=== PATIENT | female | born 1980 | race Caucasian/White ===

== ENCOUNTER → 2017-09-22 | Outpatient (CLI) | payer OTHER ==
[~2017-09-22] MED LIST: BUPR150CR PO; PROT40TA PO
== END ==
LOC: HPND 13:37
PROVIDERS: ATTEND Family Medicine
DX: O09.521 Supervision of elderly multigravida, first trimester (principal)
CPT/HCPCS: 76801

== ENCOUNTER → 2017-10-05 | Outpatient (CLI) | payer OTHER | LOC: HPND 10:52 | PROVIDERS: ATTEND Family Medicine | DX: O09.521 Supervision of elderly multigravida, first trimester (principal); O09.291 Supervision of pregnancy with other poor reproductive or obstetric history, first trimester | CPT/HCPCS: 36415; 76813 ==

== ENCOUNTER → 2017-11-16 | Outpatient (CLI) | payer OTHER | LOC: HPND 10:42 | PROVIDERS: ATTEND Family Medicine | DX: O09.522 Supervision of elderly multigravida, second trimester (principal); O09.292 Supervision of pregnancy with other poor reproductive or obstetric history, second trimester; O99.282 Endocrine, nutritional and metabolic diseases complicating pregnancy, second trimester; E03.9 Hypothyroidism, unspecified; O44.22 Partial placenta previa NOS or without hemorrhage, second trimester; O35.1XX0 Maternal care for (suspected) chromosomal abnormality in fetus, not applicable or unspecified | CPT/HCPCS: 76811; 76817 ==

== ENCOUNTER → 2017-12-14 | Outpatient (CLI) | payer OTHER | LOC: HPND 11:17 | PROVIDERS: ATTEND Family Medicine | DX: O09.522 Supervision of elderly multigravida, second trimester (principal); O35.8XX0 Maternal care for other (suspected) fetal abnormality and damage, not applicable or unspecified; O44.32 Partial placenta previa with hemorrhage, second trimester; O35.1XX0 Maternal care for (suspected) chromosomal abnormality in fetus, not applicable or unspecified; O09.892 Supervision of other high risk pregnancies, second trimester | CPT/HCPCS: 76816 ==

== ENCOUNTER 2018-03-10 10:16 | Inpatient (IN) ==
--- NOTE | 2018-03-10 11:17 | ED ---
History of Present Illness Primary Care Physician: No Primary Care Physician Chief Complaint: Loss of fluid History of Present Illness: Patient is a 37-year-old G 5 p 2 at 35/1 who presents today for loss of fluid. She reports that early this morning at approximately 6 AM showed a large gush of fluid. Clear at the time. She reports that the fluid is mildly pink currently. Denies any vaginal discharge prior to the loss of fluid this morning , malodorous smell, no bloody discharge. She also endorses contractions once every 10 minutes. They are increasing in intensity, frequency. She states she has had normal movement. Denies nausea, vomiting, fever, chills, shortness of breath, headache, lightheadedness, dizziness, dysuria, hematuria, frequency, change in urine color/smell, change in bowel habits. No other complaints today. History OB: 022 at 35/1. First delivery for preeclampsia, second delivery Medical: Hypothyroid Surgical: 1, breast augmentation 2, cosmetic surgery for scar Family Mother: Unknown Father: Mauro brothers Social EtOH: Denies Tobacco: Denies Drugs: Denies Review of Systems Constitutional: Denies chills, Denies fatigue, Denies fever(s) Eyes: Denies blurry vision, Denies bulging eyes, Denies discharge Ears, Nose, Mouth, and Throat: Denies abnormal hearing, Denies ear discharge Cardiovascular: Denies chest pain, Denies shortness of breath Respiratory: Denies chest congestion, Denies cough, Denies wheezing Gastrointestinal: Denies black, tarry stools, Denies change in bowel habits, Denies change in stools, Denies loose stools, Denies nausea, Denies vomiting Genitourinary: Denies abnormal vaginal bleeding, Denies blood in urine, Denies vaginal discharge, Denies vaginal odor Musculoskeletal: Denies back pain, Denies numbness, Denies tingling Skin/Breast: Denies skin ulcer, Denies sores Neurologic: Denies abnormal movements, Denies headache(s), Denies loss of vision , Denies numbness, Denies tingling PMFSH - History History Provided By: Patient - Medical History Medical History: Medical History (Last Updated 03/01/18 @ 21:56 by Tawnya Rose MD, R1) Hypothyroid (Acute) - Surgical History Surgical History: Surgical History (Last Updated 02/02/18 @ 12:34 by Lisa Chavarria MD, R1) History of cosmetic surgery Previous section - Tobacco History Second Hand Smoke Exposure: No Smoking Status: Never smoker - Alcohol History How Often Do You Have a Drink Containing Alcohol: Never - Substance Use History Substance History: No History of Abuse Medications and Allergies Allergies Allergy/AdvReac Type Severity Reaction Status Date / Time Sulfa (Sulfonamide Allergy Severe spiked Verified 03/01/18 21:44 Antibiotics) fever Home Medications Medication Instructions Recorded Confirmed Type Aspirin Low Dose 81 mg PO DAILY 02/02/18 03/10/18 History + DHA 1 tab/day PO DAILY 02/02/18 03/10/18 History levothyroxine 100 mcg PO DAILY 02/02/18 03/10/18 History Active Medications: Active Medications Sodium Chloride (Ns Flush) 2 ml IV.FLUSH BID MAYRA Sodium Chloride (Ns Flush) 2 ml IV.FLUSH PRN PRN PRN Reason: FLUSH AFTER USING IV ACCESS Exam Vital signs: Vital Signs 03/10/18 10:36 Temperature 98.6 F Pulse Rate 86 Respiratory Rate 20 Blood Pressure 124/78 Narrative: GENERAL: Well-nourished, well-developed patient. SKIN: Warm and dry. HEAD: Normocephalic and atraumatic. EYES: No scleral icterus. No injection or drainage. ENT: No nasal drainage noted. Mucous membranes pink. Airway patent. NECK: Supple, trachea midline. No JVD. CARDIOVASCULAR: Regular rate and rhythm without murmurs, gallops, or rubs. RESPIRATORY: Breath sounds equal bilaterally. No accessory muscle use. ABDOMEN/GI: Abdomen soft, non-tender, bowel sounds present, no rebound, no guarding GENITOURINARY: Fingertip, posterior, thick Membranes: Ruptured Uterine Contractions: Regular FHT's: Category: 1 Baseline: 150 Reactive: Yes Variability: Moderate Decels: None EXTREMITIES: No cyanosis or edema. BACK: Nontender without obvious deformity. No CVA tenderness. NEUROLOGICAL: Awake and alert. Motor and sensory grossly within normal limits. Five out of 5 muscle strength in all muscle groups. Normal speech. Results - Labs CBC & Chem 7: 03/10/18 11:09 Assessment and Plan - Diagnosis (1) premature rupture of membranes Code(s): O42.919 - premature rupture of membranes, unspecified as to length of time between rupture and onset of labor, unspecified trimester Status: Acute (2) 35 weeks gestation of Code(s): Z3A.35 - 35 weeks gestation of Status: Acute - Plan 37-year-old at 35/1 who presents with PPROM. Amnisure positive. Increasingly frequent and strong contractions. -Admit to labor and delivery, observe for spontaneous labor -we will consider Pitocin augmentation if no significant change -FHT category 1, reassuring -Expectant management - Attending Attestation Patient seen, examined, and discussed with Dr Bhatia. I agree with assessment and management as documented and discussed with me. Pt comes in after ROM at home at 0600, clear. She is 35 weeks gestation by 1st trimester US. Will monitor for onset of labor - pt with contractions. Betamethasone. GBS unknown - PCR collected. PCN ordered. Discharge Plan - Physicians Team Primary Care Provider: Primary Care Physici,No Attending Provider: Macy Duron
[2018-03-10 11:26] LABS: Hemoglobin 9.6 gm/dL (11.6-15.3); Mean Corpuscular HGB Conc 33.2 % (32.0-36.0); Mean Corpuscular Hemoglobin 27.4 pg (27.0-34.0); Mean Corpuscular Volume 82.6 fL (80.0-100.0); Mean Platelet Volume 7.8 fL (7.0-11.0); Platelet Count 415 th/mm3 (150-450); Red Blood Count 3.51 mil/mm3 (4.00-5.30); Red Cell Distribution Width 13.6 % (11.6-17.2); White Blood Count 13.2 th/mm3 (4.0-11.0)
[2018-03-10] MEDS ORDERED: Acetaminophen 325 MG Tablet PO PRN ×2 (11:29→18:59)
[2018-03-10] MEDS ORDERED: Betamethasone Sod Phos/Acetate Inj 30 MG/5 ML Vial IM SCH (11:30)
[2018-03-10 11:54] LABS: Bilirubin,Urine Negative (Negative); Clarity,Urine Hazy (Clear); Color,Urine Yellow (Yellw/Straw); Glucose,Urine (UA) Negative (Negative); Leukocyte Esterase,Urine Negative (Negative); Mucus,Urine Few /lpf (Occasional); Nitrite,Urine Negative (Negative); Specific Gravity,Urine 1.005 (1.002-1.035); Squamous Epithelial Cell,Urine 9 /hpf (0-5)
[2018-03-10] MEDS ORDERED: Naloxone Inj 0.4 MG/ML Vial IV.PUSH PRN ×2 (11:55→18:59)
[2018-03-10] MEDS ORDERED: Oxytocin 30 Units/500ml Premix 30 UNITS/500 ML BAG IV.SIG ONE (11:55)
[2018-03-10] MEDS ORDERED: fentaNYL Citrate Inj 100 MCG/2 ML Ampul IV.PUSH PRN ×2 (11:55)
[2018-03-10] MEDS ORDERED: Sod Chloride 0.9% Inj 1,000 ML IV.CONT PRN (11:55)
[2018-03-10] MEDS ORDERED: Sodium Chlor 0.9% Inj 500 ML IV.SIG PRN (11:55)
[2018-03-10] MEDS ORDERED: Penicillin G Potassium Inj 5,000,000 UNIT in Sodium Chloride 0.9% Inj 100 ML IV.SIG ONE (11:55)
[2018-03-10] MEDS ORDERED: Citric Acid/Sodium Citrate Liq 30 ML UDC PO SCH (12:00)
--- NOTE | 2018-03-10 12:17 | P.OBGPN ---
History of Present Illness Primary Care Physician: No Primary Care Physician Chief Complaint: Loss of fluid History of Present Illness: Patient is a 37-year-old G 5 p 2 at 35/1 who presents today for loss of fluid. She reports that early this morning at approximately 6 AM showed a large gush of fluid. Clear at the time. She reports that the fluid is mildly pink currently. Denies any vaginal discharge prior to the loss of fluid this morning , malodorous smell, no bloody discharge. She also endorses contractions once every 10 minutes. They are increasing in intensity, frequency. She states she has had normal movement. Denies nausea, vomiting, fever, chills, shortness of breath, headache, lightheadedness, dizziness, dysuria, hematuria, frequency, change in urine color/smell, change in bowel habits. No other complaints today. History OB: 022 at 35/1. First delivery for preeclampsia, second delivery Medical: Hypothyroid Surgical: 1, breast augmentation 2, cosmetic surgery for scar Family Mother: Unknown Father: Mauro brothers Social EtOH: Denies Tobacco: Denies Drugs: Denies Review of Systems Constitutional: Denies chills, Denies fatigue, Denies fever(s) Eyes: Denies blurry vision, Denies bulging eyes, Denies discharge Ears, Nose, Mouth, and Throat: Denies abnormal hearing, Denies ear discharge Cardiovascular: Denies chest pain, Denies shortness of breath Respiratory: Denies chest congestion, Denies cough, Denies wheezing Gastrointestinal: Denies black, tarry stools, Denies change in bowel habits, Denies change in stools, Denies loose stools, Denies nausea, Denies vomiting Genitourinary: Denies abnormal vaginal bleeding, Denies blood in urine, Denies vaginal discharge, Denies vaginal odor Musculoskeletal: Denies back pain, Denies numbness, Denies tingling Skin/Breast: Denies skin ulcer, Denies sores Neurologic: Denies abnormal movements, Denies headache(s), Denies loss of vision , Denies numbness, Denies tingling PMFSH - History History Provided By: Patient - Medical History Medical History: Medical History (Last Updated 03/01/18 @ 21:56 by Tawnya Rose MD, R1) Hypothyroid (Acute) - Surgical History Surgical History: Surgical History (Last Updated 02/02/18 @ 12:34 by Lisa Chavarria MD, R1) History of cosmetic surgery Previous section - Tobacco History Second Hand Smoke Exposure: No Smoking Status: Never smoker - Alcohol History How Often Do You Have a Drink Containing Alcohol: Never - Substance Use History Substance History: No History of Abuse Medications and Allergies Active Medications: Active Medications Sodium Chloride (Ns Flush) 2 ml IV.FLUSH BID MAYRA Sodium Chloride (Ns Flush) 2 ml IV.FLUSH PRN PRN PRN Reason: FLUSH AFTER USING IV ACCESS Allergies Allergy/AdvReac Type Severity Reaction Status Date / Time Sulfa (Sulfonamide Allergy Severe spiked Verified 03/01/18 21:44 Antibiotics) fever Home Medications Medication Instructions Recorded Confirmed Type Aspirin Low Dose 81 mg PO DAILY 02/02/18 03/01/18 History + DHA 1 tab/day PO DAILY 02/02/18 03/01/18 History levothyroxine 100 mcg PO DAILY 02/02/18 03/01/18 History Exam Vital signs: Vital Signs 03/10/18 10:36 Temperature 98.6 F Pulse Rate 86 Respiratory Rate 20 Blood Pressure 124/78 Narrative: GENERAL: Well-nourished, well-developed patient. SKIN: Warm and dry. HEAD: Normocephalic and atraumatic. EYES: No scleral icterus. No injection or drainage. ENT: No nasal drainage noted. Mucous membranes pink. Airway patent. NECK: Supple, trachea midline. No JVD. CARDIOVASCULAR: Regular rate and rhythm without murmurs, gallops, or rubs. RESPIRATORY: Breath sounds equal bilaterally. No accessory muscle use. ABDOMEN/GI: Abdomen soft, non-tender, bowel sounds present, no rebound, no guarding GENITOURINARY: Fingertip, posterior, thick Membranes: Ruptured Uterine Contractions: Regular FHT's: Category: 1 Baseline: 150 Reactive: Yes Variability: Moderate Decels: None EXTREMITIES: No cyanosis or edema. BACK: Nontender without obvious deformity. No CVA tenderness. NEUROLOGICAL: Awake and alert. Motor and sensory grossly within normal limits. Five out of 5 muscle strength in all muscle groups. Normal speech. Results - Labs CBC & Chem 7: 03/10/18 11:09 Assessment and Plan - Diagnosis (1) premature rupture of membranes Code(s): O42.919 - premature rupture of membranes, unspecified as to length of time between rupture and onset of labor, unspecified trimester Status: Acute (2) 35 weeks gestation of Code(s): Z3A.35 - 35 weeks gestation of Status: Acute - Plan 37-year-old at 35/1 who presents with PPROM. Amnisure positive. Increasingly frequent and strong contractions. -Admit to labor and delivery, observe for spontaneous labor -we will consider Pitocin augmentation if no significant change -FHT category 1, reassuring -Expectant management Attending note Patient seen, examined, and discussed with Dr Bhatia. I agree with assessment and management as documented and discussed with me. SOWMYA FREIRE MD
[2018-03-10] MEDS ORDERED: fentaNYL 2MCG-Bupiv 0.125% Epi 150 ML EPIDURAL ONE (14:12)
[2018-03-10] MEDS ORDERED: Lidocaine PF 1% Inj 30 ML Vial ONE (14:32)
[2018-03-10 14:42] LABS: Amphetamine Urine With Conf Neg (Neg); Benzodiazepine Urine With Conf Neg (Neg)
[2018-03-10] MEDS ORDERED: fentaNYL Citrate Inj 100 MCG/2 ML Ampul EPIDURAL ONE (15:00)
[2018-03-10] MEDS ORDERED: fentaNYL 2MCG-Bupiv 0.125% Epi 150 ML EPIDURAL PRN (15:00)
[2018-03-10] MEDS ORDERED: Penicillin G Potassium Inj 2,500,000 UNIT in Sodium Chlor 0.9% Inj 100 ML IV.SIG SCH (15:55)
[2018-03-10] MEDS ORDERED: Measles/Mumps/Rubella Vaccine Inj 0.5 ML Vial SQ ONE (16:00)
[2018-03-10] MEDS ORDERED: Diphtheria/Tetanus/Pertussis Vaccine Inj 0.5 ML Syringe IM ONE (16:00)
[2018-03-10 18:56] LABS: Cord Arterial Blood HCO3 21.4
[2018-03-10] MEDS ORDERED: Oxytocin 30 Units/500ml Premix 30 UNITS/500 ML BAG IV.CONT PRN (18:59)
[2018-03-10] MEDS ORDERED: Zolpidem Tartrate 5 MG Tablet PO PRN (18:59)
[2018-03-10] MEDS ORDERED: Bisacodyl 10 MG Supp RECTAL PRN (18:59)
[2018-03-10] MEDS ORDERED: Witch Hazel 50%/Glyderin 12.5% 40 Pad Jar RECTAL PRN (18:59)
[2018-03-10] MEDS ORDERED: Benzocaine 20% Top Spray 60 ML Can TOPICAL PRN (18:59)
--- NOTE | 2018-03-10 19:08 | P.OBDELI ---
Weeks Gestation: 35 Patient Started Active Labor: Yes Active Labor Start Date: 03/10/18 Medical Induction of Labor: No Artificial Rupture of Membrane: No Anesthesia: Epidural Episiotomy: none Vaginal Delivery: Normal Presentation: Occiput anterior Nuchal Cord: None Delayed Cord Clamping (45 sec): Yes Placenta: Spontaneous delivery, Cord pH (7.24) Laceration: 2 deg Repair: Vicryl running Estimated blood loss (mL): 250 Infant: Female (2820g; APGARS 8/8) Additional Information: Ms. Farnsworth is a 37-year-old G5 now P2 after uncomplicated at 35/1 weeks gestation. Patient had premature rupture membranes at approximately 0600 this morning of clear fluid per her report. Patient progressed in active labor throughout the day and delivered at 1758. Delivery performed by Dr. Ace and assisted by Dr. Freire. Apgars were 8/8 with a birthweight of 2820g. There was a secondary laceration repaired with a running Vicryl stitch at the vaginal introitus at approximately 6:00. Hemostasis was obtained and mother is currently resting with baby in room without complications. Attending note: I was present for entire procedure. SOWMYA FREIRE MD
[2018-03-10] MEDS: Senna/Docusate Sodium 8.6/50 MG Tablet PO SCH (22:53)
[2018-03-11] MEDS ORDERED: Prenatal Vit/Ca/Iron/Folic Acid Tablet PO SCH (09:00)
[2018-03-11] MEDS: Senna/Docusate Sodium 8.6/50 MG Tablet PO SCH ×2 (09:32→23:35)
[2018-03-11] MEDS: Ferrous Sulfate 325 MG Tablet PO SCH (09:32)
--- NOTE | 2018-03-11 09:57 | P.PNOB ---
Subjective Post day: 1 Interval history: Pt seen and examined this morning. day # 1 AFVSS overnight. Decreased lochia. Denies dysuria. No breast tenderness. She is feeding the baby via breast. Appetite good. No nausea or vomiting. Patient has not yet had a bowel movement, but does endorse bowel gas. Ambulating well. Denies calf pain or shortness of breath. Otherwise, she is doing well this morning and has no other concerns. Objective Vital Signs/I&O: Vital Signs 03/10/18 10:36 03/10/18 11:52 03/10/18 12:30 Temperature 98.6 F Pulse Rate 86 85 82 Respiratory Rate 20 Blood Pressure 124/78 113/71 125/74 03/10/18 12:44 03/10/18 12:45 03/10/18 13:02 Temperature 98.5 F Pulse Rate Respiratory Rate 20 Blood Pressure 113/64 03/10/18 13:05 03/10/18 13:45 03/10/18 14:01 Temperature Pulse Rate 80 73 73 Respiratory Rate 20 20 Blood Pressure 116/72 110/62 03/10/18 14:15 03/10/18 14:36 03/10/18 14:40 Temperature Pulse Rate 81 79 Respiratory Rate 20 Blood Pressure 123/67 131/65 03/10/18 14:42 03/10/18 14:50 03/10/18 14:55 Temperature Pulse Rate 71 88 Respiratory Rate 18 Blood Pressure 122/64 114/58 L 03/10/18 14:59 03/10/18 15:00 03/10/18 15:25 Temperature 98.5 F Pulse Rate 83 84 Respiratory Rate 18 Blood Pressure 110/56 L 120/69 03/10/18 15:26 03/10/18 15:40 03/10/18 16:00 Temperature Pulse Rate 87 89 Respiratory Rate 18 18 Blood Pressure 122/80 115/55 L 03/10/18 16:22 03/10/18 16:40 03/10/18 16:50 Temperature Pulse Rate 90 86 95 H Respiratory Rate 18 Blood Pressure 118/59 L 112/61 108/54 L 03/10/18 17:05 03/10/18 17:25 03/10/18 17:30 Temperature Pulse Rate 100 H 91 H Respiratory Rate 18 Blood Pressure 125/71 110/78 03/10/18 17:45 03/10/18 18:35 03/10/18 18:45 Temperature Pulse Rate 102 H 85 83 Respiratory Rate 18 Blood Pressure 125/74 119/63 121/70 03/10/18 18:51 03/10/18 19:15 03/10/18 19:30 Temperature 98.0 F Pulse Rate 124 H Respiratory Rate 18 18 18 Blood Pressure 126/92 H 03/10/18 19:45 03/10/18 20:00 03/10/18 20:15 Temperature Pulse Rate Respiratory Rate 18 Blood Pressure 03/10/18 21:04 03/11/18 08:00 Temperature 98.4 F 98.3 F Pulse Rate 72 82 Respiratory Rate 18 20 Blood Pressure 112/64 110/64 Result Diagrams: 03/10/18 11:09 Objective Remarks: GENERAL: Well-nourished, well-developed patient. CARDIOVASCULAR: Regular rate and rhythm without murmurs, gallops, or rubs. RESPIRATORY: Breath sounds equal bilaterally. No accessory muscle use. ABDOMEN/GI: Abdomen soft, non-tender. Fundus: Firm, non-tender at umbilicus. GENITOURINARY: Light to moderate bleeding. EXTREMITIES: No cyanosis, non-tender, without signs of DVT. Mild dependent pedal edema that is nontender at the ankle. Medications and IVs: Active Medications Acetaminophen (Tylenol) 650 mg PO Q4H PRN PRN Reason: PAIN SCALE 1 TO 5 Acetaminophen (Tylenol) 650 mg PO Q4H PRN PRN Reason: PAIN SCALE 1 TO 2 Last Admin: 03/11/18 04:42 Dose: 650 mg Al Hydroxide/Mg Hydroxide (Milk Of Max [place]) 30 ml PO Q12H PRN PRN Reason: Mild Constipation Benzocaine (Americaine 20% [place]) 1 spray TOPICAL Q4H PRN PRN Reason: For Perineum Discomfort Last Admin: 03/10/18 22:51 Dose: 1 spray Bisacodyl (Dulcolax Supp) 10 mg RECTAL DAILY PRN PRN Reason: SEVERE CONSITIPATION Ephedrine Sulfate (Ephedrine/Ns Syringe) 10 mg IV.PUSH UNSCH PRN PRN Reason: SEE LABEL COMMENTS Stop: 03/11/18 15:00 Ferrous Sulfate (Ferosul) 325 mg PO DAILY MAYRA Last Admin: 03/11/18 09:32 Dose: 325 mg Fentanyl/Bupivacaine/Sodium Chlor (Fentanyl 2 Mcg-Bupiv 0.125% Epi) 150 mls @ 10 mls/hr EPIDURAL PRN PRN PRN Reason: for Labor Pain Oxytocin (Pitocin 30 Units/Ns 500 Ml Premix) 30 units in 500 mls @ 100 mls/hr IV.CONT UNSCH PRN PRN Reason: Heavy bleeding Ibuprofen (Motrin) 800 mg PO Q8H PRN PRN Reason: For Cramping Last Admin: 03/11/18 06:56 Dose: 800 mg Lactulose (Lactulose Liq) 30 ml PO DAILY PRN PRN Reason: SEVERE CONSITIPATION Miscellaneous Information (Misc Information) 1 each OTHER UNSCH PRN PRN Reason: SEE LABEL COMMENTS Stop: 03/11/18 15:00 Miscellaneous Information (Misc Information) 1 each OTHER UNSCH PRN PRN Reason: SEE LABEL COMMENTS Stop: 03/11/18 15:00 Naloxone HCl (Narcan Inj) 0.1 mg IV.PUSH Q2M PRN PRN Reason: for opiate reversal Non-Formulary Medication ( + Dha) 1 tab/day PO DAILY [facility] Non-Formulary Medication (Levothyroxine) 100 mcg PO DAILY [facility] Ondansetron HCl (Zofran Odt) 4 mg PO Q6H PRN PRN Reason: NAUSEA OR VOMITING Ondansetron HCl (Zofran Odt) 4 mg PO Q6H PRN PRN Reason: NAUSEA OR VOMITING Vit/Calcium/Iron/Folic Ac (Stuartnatal Plus 3) 1 tab PO DAILY [facility] Last Admin: 03/11/18 09:32 Dose: Not Given Senna/Docusate Sodium (Destinee-Colace) 1 tab PO BID [facility] Last Admin: 03/11/18 09:32 Dose: 1 tab Sennosides (Senokot) 17.2 mg PO Q12H PRN PRN Reason: Moderate Constipation Sodium Chloride (Ns Flush) 2 ml IV.FLUSH BID [facility] Last Admin: 03/11/18 09:33 Dose: 2 ml Sodium Chloride (Ns Flush) 2 ml IV.FLUSH PRN PRN PRN Reason: FLUSH AFTER USING IV ACCESS Sodium Chloride (Ns Flush) 2 ml IV.FLUSH BID [facility] Last Admin: 03/11/18 09:34 Dose: Not Given Sodium Chloride (Ns Flush) 2 ml IV.FLUSH PRN PRN PRN Reason: FLUSH AFTER USING IV ACCESS Sodium Chloride (Ns Flush) 2 ml IV.FLUSH BID MAYRA Last Admin: 03/11/18 09:34 Dose: Not Given Sodium Chloride (Ns Flush) 2 ml IV.FLUSH PRN PRN PRN Reason: FLUSH AFTER USING IV ACCESS Witch Geri/Glycerin (Tucks Pads) 1 applicatio RECTAL QID PRN PRN Reason: HEMORRHOIDS Last Admin: 03/10/18 22:51 Dose: 1 applicatio Zolpidem Tartrate (Ambien) 5 mg PO HS PRN PRN Reason: SLEEP Assessment and Plan - Diagnosis (1) premature rupture of membranes Code(s): O42.919 - premature rupture of membranes, unspecified as to length of time between rupture and onset of labor, unspecified trimester Status: Acute (2) 35 weeks gestation of Code(s): Z3A.35 - 35 weeks gestation of Status: Acute - Plan 37 y/o female who is day # 1 s/p uncomplicated with a secondary laceration. -Continue routine care. -Tylenol and Motrin PRN pain. -Continue home levothyroxine 100 mcg daily for hypothyroidism -Continue home iron daily for anemia -Discontinue daily aspirin for high risk -Rubella and HIV screening test pending, quantitative test previously negative -Encouraged OOB. Advised pelvic rest for 6 wks. -Re: ctrl, she would like a Mirena IUD. Plan to discuss and schedule patient at her 6 week follow-up appointment. Patient thoroughly educated on risk of possible until contraceptive care is complete. -Anticipate discharge tomorrow, 03/12. santi Avelar MD Discharge Planning: Likely tomorrow pending clinical course - Attending Attestation The exam, history, and the medical decision-making described in the above note were completed with the assistance of the resident physician. I reviewed and agree with the findings presented. I attest that I had a [id number] encounter with the patient on the same day, and personally performed and documented my assessment and findings in the medical record.
[2018-03-11] MEDS ORDERED: DHA PO SCH (10:30)
[2018-03-11] MEDS ORDERED: PRENATAL PO SCH (10:30)
[2018-03-11] MEDS ORDERED: [UNRECOGNIZED DRUG - OTHER] PO SCH (10:30)
[2018-03-11] MEDS: Levothyroxine 100 MCG Tablet PO SCH (10:41)
[2018-03-11 21:13] VITALS: RESP 18
[2018-03-12] MEDS: Levothyroxine 100 MCG Tablet PO SCH (07:26)
--- NOTE | 2018-03-12 09:19 | P.PNOB ---
Subjective Interval history: Patient seen and examined this morning. She is a 37-year-old female that delivered at 35 weeks via spontaneous vaginal delivery. She is day # 2. AFVSS overnight. Decreased lochia. Patient's pain is well controlled. She reports eating and drinking without any nausea or vomiting. Patient has passed gas but has not had no bowel movement today. Patient is walking without lower extremity pain or shortness of breath. Patient reports desire for contraception and will have the Mirena in 6 weeks by her PCP. Patient is formula feeding but will begin breast-feeding upon discharge. She denies any chest pain, shortness of breath, abdominal pain today. She is agreeable with her plan and is ready for discharge. Objective Vital Signs/I&O: Vital Signs 03/11/18 20:00 Temperature 98.0 F Pulse Rate 79 Respiratory Rate 18 Blood Pressure 128/69 Result Diagrams: 03/10/18 11:09 Objective Remarks: GENERAL: Well-nourished, well-developed patient. CARDIOVASCULAR: Regular rate and rhythm without murmurs, gallops, or rubs. RESPIRATORY: Breath sounds equal bilaterally. No accessory muscle use. ABDOMEN/GI: Abdomen soft, non-tender. Fundus: Firm, non-tender at umbilicus. GENITOURINARY: Light to moderate bleeding. EXTREMITIES: No cyanosis or edema, non-tender, without signs of DVT. Medications and IVs: Active Medications Acetaminophen (Tylenol) 650 mg PO Q4H PRN PRN Reason: PAIN SCALE 1 TO 5 Acetaminophen (Tylenol) 650 mg PO Q4H PRN PRN Reason: PAIN SCALE 1 TO 2 Last Admin: 03/11/18 04:42 Dose: 650 mg Al Hydroxide/Mg Hydroxide (Milk Of Max [place]) 30 ml PO Q12H PRN PRN Reason: Mild Constipation Benzocaine (Americaine 20% Top [place]) 1 spray TOPICAL Q4H PRN PRN Reason: For Perineum Discomfort Last Admin: 03/10/18 22:51 Dose: 1 spray Bisacodyl (Dulcolax Supp) 10 mg RECTAL DAILY PRN PRN Reason: SEVERE CONSITIPATION Ferrous Sulfate (Ferosul) 325 mg PO DAILY MAYRA Last Admin: 03/11/18 09:32 Dose: 325 mg Fentanyl/Bupivacaine/Sodium Chlor (Fentanyl 2 Mcg-Bupiv 0.125% Epi) 150 mls @ 10 mls/hr EPIDURAL PRN PRN PRN Reason: for Labor Pain Oxytocin (Pitocin 30 Units/Ns 500 Ml Premix) 30 units in 500 mls @ 100 mls/hr IV.CONT UNSCH PRN PRN Reason: Heavy bleeding Ibuprofen (Motrin) 800 mg PO Q8H PRN PRN Reason: For Cramping Last Admin: 03/11/18 23:35 Dose: 800 mg Lactulose (Lactulose Liq) 30 ml PO DAILY PRN PRN Reason: SEVERE CONSITIPATION Levothyroxine Sodium (Synthroid) 100 mcg PO DAILY@0600 [facility] Last Admin: 03/12/18 07:26 Dose: 100 mcg Naloxone HCl (Narcan Inj) 0.1 mg IV.PUSH Q2M PRN PRN Reason: for opiate reversal Ondansetron HCl (Zofran Odt) 4 mg PO Q6H PRN PRN Reason: NAUSEA OR VOMITING Patient Own Medication ( + Dha 1 Tab/Day) 0 each PO DAILY [facility] Senna/Docusate Sodium (Destinee-Colace) 1 tab PO BID [facility] Last Admin: 03/11/18 23:35 Dose: 1 tab Sennosides (Senokot) 17.2 mg PO Q12H PRN PRN Reason: Moderate Constipation Sodium Chloride (Ns Flush) 2 ml IV.FLUSH BID [facility] Last Admin: 03/11/18 09:33 Dose: 2 ml Sodium Chloride (Ns Flush) 2 ml IV.FLUSH PRN PRN PRN Reason: FLUSH AFTER USING IV ACCESS Sodium Chloride (Ns Flush) 2 ml IV.FLUSH BID [facility] Last Admin: 03/11/18 09:34 Dose: Not Given Sodium Chloride (Ns Flush) 2 ml IV.FLUSH PRN PRN PRN Reason: FLUSH AFTER USING IV ACCESS Sodium Chloride (Ns Flush) 2 ml IV.FLUSH BID [facility] Last Admin: 03/11/18 09:34 Dose: Not Given Sodium Chloride (Ns Flush) 2 ml IV.FLUSH PRN PRN PRN Reason: FLUSH AFTER USING IV ACCESS Witch Geri/Glycerin (Tucks Pads) 1 applicatio RECTAL QID PRN PRN Reason: HEMORRHOIDS Last Admin: 03/10/18 22:51 Dose: 1 applicatio Zolpidem Tartrate (Ambien) 5 mg PO HS PRN PRN Reason: SLEEP Assessment and Plan - Diagnosis (1) premature rupture of membranes Code(s): O42.919 - premature rupture of membranes, unspecified as to length of time between rupture and onset of labor, unspecified trimester Status: Acute (2) 35 weeks gestation of Code(s): Z3A.35 - 35 weeks gestation of Status: Acute - Plan 37 y/o female who is day # 2 s/p uncomplicated with a secondary laceration. -Continue routine care. -Tylenol and Motrin PRN pain. -Continue home levothyroxine 100 mcg daily for hypothyroidism -Continue home iron daily for anemia -Discontinue daily aspirin for high risk -Rubella and HIV screening test pending, quantitative test previously negative -Encouraged OOB. Advised pelvic rest for 6 wks. -Re: ctrl, she would like a Mirena IUD. Patient understands to follow-up with PCP in 6 weeks for appointment. Patient thoroughly educated on risk of possible until contraceptive care is complete. -Patient formula feeding and will switch her breast-feeding upon discharge. -Discharge today. santi Sibley MD Discharge Planning: Likely tomorrow pending clinical course
[2018-03-12] MEDS: Senna/Docusate Sodium 8.6/50 MG Tablet PO SCH (10:08)
[2018-03-12] MEDS: Ferrous Sulfate 325 MG Tablet PO SCH (10:08)
[2018-03-12 10:26] VITALS: BP 109/64; PULSE 74; TEMP 98.2
== END 2018-03-12 12:00 | disposition home or self-care (01) ==
LOC: HOBED 10:16 → H2E 11:31 → H1EA 21:46
PROVIDERS: ADMIT Family Medicine; ATTEND Family Medicine